=== PATIENT | male | born 1975 | race Caucasian/White ===

== ENCOUNTER → 2022-11-14 | Outpatient (CLI) | payer OTHER | LOC: M RAD 10:51 | PROVIDERS: ATTEND Internal Medicine | DX: M25.511 Pain in right shoulder (principal); M25.541 Pain in joints of right hand; M25.512 Pain in left shoulder ==

== ENCOUNTER → 2022-12-02 | Outpatient (CLI) | payer OTHER | LOC: M RAD 14:57 | DX: M51.37 Other intervertebral disc degeneration, lumbosacral region (principal); M50.323 Other cervical disc degeneration at C6-C7 level ==